=== PATIENT | male | born 1965 | race African-American/Black ===

== ENCOUNTER 2016-06-10 10:14 | Emergency (ER) | payer OTHER ==
[2016-06-10 10:28] VITALS: BP 154/80; PULSE 67; TEMP 97.4; BMI 29.0
[2016-06-10] MEDS ORDERED: KETOROLAC TROMETHAMINE 60 MG/2 ML VIAL IM ONE (10:53)
[2016-06-10] MEDS ORDERED: KETOROLAC TROMETHAMINE 60 MG/2 ML VIAL ONE (11:00)
[2016-06-10 11:14] LABS: URINE APPEARANCE CLEAR; URINE BILIRUBIN NEGATIVE (NEGATIVE); URINE BLOOD NEGATIVE (NEGATIVE); URINE COLOR LTYELLOW; URINE GLUCOSE (UA) NEGATIVE (NEGATIVE); URINE KETONE NEGATIVE (NEGATIVE); URINE LEUK ESTERASE NEGATIVE (NEGATIVE); URINE NITRITE NEGATIVE (NEGATIVE); URINE PROTEIN NEGATIVE (NEGATIVE); URINE UROBILINOGEN NEGATIVE E.U./dl (0.2-1.0)
--- NOTE | 2016-06-10 11:36 | PDOC ---
History of Present Illness - General Chief Complaint: Back Pain Stated Complaint: LOWER BACK PAIN, LT HIP PAIN Time Seen by Provider: 06/10/16 10:42 History Source: Patient Exam Limitations: No Limitations - History of Present Illness Initial Comments: 06/10/16 11:31 51 yr male with c/o left lower back pain radiates to buttock and thigh. Symptoms started one week ago. no urine or bowel dysfunction, no saddle anesthesia. Pt has no medial history .Pt also notes pain to the left elbow for one month. Pt denies trauma, denies warmth to the area, notes the "bone looks weird". Pt took no meds fo rpain [employer]. Past History - Past Medical History Allergies/Adverse Reactions: Allergies Allergy/AdvReac Type Severity Reaction Status Date / Time No Known Allergies Allergy Verified 06/10/16 10:25 Home Medications: Ambulatory Orders Levothyroxine [Synthroid -] 50 mcg PO ASDIR 06/10/16 HTN: Yes Psychiatric Problems: Yes (ANXIETY.) Seizures: Yes - Surgical History Orthopedic Surgery: Yes (L. Knee & Shoulder 2009) - Immunization History Immunization Up to Date: Yes - Psycho/Social/Smoking Cessation Hx Anxiety: Yes Suicidal Ideation: No Smoking Status: No Smoking History: Never smoked Have you smoked in the past 12 months: No Number of Cigarettes Smoked Daily: 0 Information on smoking cessation initiated: No Hx Alcohol Use: No Drug/Substance Use Hx: No Substance Use Type: None Hx Substance Use Treatment: No Trauma Specific PMHX - Complaint Specific PMHX Arthritis: No Back Injury: No Neck Injury: No Hx Sacro Iliac Joint Dysfunction: No Review of Systems - Review of Systems Able to Perform ROS?: Yes Is the patient limited Malagasy proficient: No Constitutional: No: Symptoms Reported HEENTM: No: Symptoms Reported, Dental Problems Respiratory: No: Symptoms reported Cardiac (ROS): No: Symptoms Reported ABD/GI: No: Symptoms Reported : No: Symptoms Reported Musculoskeletal: Yes: Back Pain, Other (left elbow pain) *Physical Exam - Vital Signs Last Vital Signs Temp Pulse Resp BP Pulse Ox 97.4 F L 67 20 154/80 99 06/10/16 10:25 06/10/16 10:25 06/10/16 10:25 06/10/16 10:25 06/10/16 10:25 - Physical Exam General Appearance: Yes: Nourished, Appropriately Dressed HEENT: positive: EOMI, FACUNDO, Normal ENT Inspection, TMs Normal, Pharynx Normal Neck: positive: Supple Respiratory/Chest: positive: Lungs Clear, Normal Breath Sounds Cardiovascular: positive: Regular Rhythm, Regular Rate Gastrointestinal/Abdominal: positive: Normal Bowel Sounds, Soft Musculoskeletal: positive: Normal Inspection. negative: Decreased Range of Motion, Vertebral Tenderness Extremity: positive: Normal Capillary Refill, Normal Inspection Integumentary: positive: Normal Color, Dry, Warm Neurologic: positive: Fully Oriented, Alert, Normal Mood/Affect, Normal Response , Motor Strength 08/27 ED Treatment Course - ADDITIONAL ORDERS Additional order review: Laboratory Results 06/10/16 11:00 Urine Color Ltyellow Urine Appearance Clear Urine pH 5.0 Ur Specific [place] 1.014 Urine Protein Negative Urine Glucose (UA) Negative Urine Ketones Negative Urine Blood Negative Urine Nitrite Negative Urine Bilirubin Negative Urine Urobilinogen Negative Ur Leukocyte Esterase Negative - RADIOLOGY Radiology Studies Ordered: Category Date Time Status ELBOW-LEFT [RAD] Stat Radiology 06/10/16 11:27 Ordered - Medications Given in the ED: ED Medications Discontinued Medications Generic Name Dose Route Start Last Admin Trade Name Freq PRN Reason Stop Dose Admin Ketorolac Tromethamine 60 mg 06/10/16 10:53 06/10/16 11:07 Toradol Injection - IM 06/10/16 10:54 60 mg ONCE ONE Administration Medical Decision Making - Medical Decision Making 06/10/16 11:38 cc: back pain to left buttock and thigh worse with raising left leg, no numbness or tingling to leg no saddle anesthesia. left elbow no deformity or swelling no redness or warmth, skin intact will xray left elbow toradol for pain ua to r/o hematuria, UTI *DC/Admit/Observation/Transfer Diagnosis at time of Disposition: Sciatica of left side - Discharge Dispostion Disposition: HOME Condition at time of disposition: Good - Patient Instructions Additional Instructions: warm compresses to lower back every few hours for 20 minutes take naproysn for pain take flexeril for muscle spasm (DO NOT DRIVE, OPERATE MACHINERY OR DRINK ALCOHOL ) WHEN TAKING FLEXERIL IT MAY MAKE YOU DROWSY follow with your PMD or with the orthopedist for follow up
== END 2016-06-10 12:21 | disposition home or self-care (01) ==
LOC: JERFT 10:14
PROC: 3E0233Z Introduction of Anti-inflammatory into Muscle, Percutaneous Approach (ICD-10-PCS; principal; 2016-06-10)
DX: M54.42 Lumbago with sciatica, left side (principal)
CPT/HCPCS: 73070-TC-LT; 81003; 99281-25

== ENCOUNTER 2017-07-05 23:00 | Emergency (ER) | payer OTHER ==
[2017-07-05 23:18] VITALS: TEMP 97.4; BMI 29.5
[2017-07-06] MEDS ORDERED: ALPRAZolam 0.25 MG TABLET PO ONE (00:31)
[2017-07-06] MEDS ORDERED: ACETAMINOPHEN 500 MG TABLET (FP) PO STA (00:38)
[2017-07-06] MEDS ORDERED: ALPRAZolam 0.25 MG TABLET ONE (00:38)
[2017-07-06] MEDS ORDERED: ACETAMINOPHEN 325 MG TABLET (FP) ONE (00:43)
--- NOTE | 2017-07-06 01:43 | PDOC ---
History of Present Illness <AnicetoShireen Zoila - Last Filed: 07/06/17 01:43> - General History Source: Patient Exam Limitations: No Limitations - History of Present Illness Initial Comments: 07/06/17 01:47 The patient is a 52 year old male with past medical history of hypertension, anxiety and migraines who presents to the ED with a panic attack. The patient states the onset of the attack was due to the fact that he came home to his apartment to find that his locks were changed. The patient states he has been having difficulties within the co-op he lives in, resulting in going to court multiple times in the year. He describes his panic attack as palpitations but denies any associated chest pain, shortness of breath, or diaphoresis. He denies any recent illness, fevers, or chills. Allergies: NKDA PCP: Dr. Elijah Navarro <Saray Bass - Last Filed: 07/06/17 01:51> - General Chief Complaint: Psychiatric Stated Complaint: ANIEXTY Time Seen by Provider: 07/06/17 00:07 Past History - Past Medical History COPD: No HTN: Yes Psychiatric Problems: Yes (ANXIETY.) Seizures: Yes - Surgical History Orthopedic Surgery: Yes (L. Knee & Shoulder 2009) - Immunization History Immunization Up to Date: Yes - Suicide/Smoking/Psychosocial Hx Smoking Status: No Smoking History: Never smoked Have you smoked in the past 12 months: No Number of Cigarettes Smoked Daily: 0 Information on smoking cessation initiated: No Hx Alcohol Use: No Drug/Substance Use Hx: No Substance Use Type: None Hx Substance Use Treatment: No <Raul Morelandlili Cummings - Last Filed: 07/06/17 01:43> <Saray Bass - Last Filed: 07/06/17 01:51> - Past Medical History Allergies/Adverse Reactions: Allergies Allergy/AdvReac Type Severity Reaction Status Date / Time No Known Allergies Allergy Verified 06/10/16 10:25 Home Medications: Ambulatory Orders Cyclobenzaprine HCl [Flexeril -] 5 mg PO TID PRN #15 tablet 06/10/16 Levothyroxine [Synthroid -] 50 mcg PO ASDIR 06/10/16 Naproxen [Naprosyn -] 500 mg PO BID PRN #14 tablet 06/10/16 Review of Systems - Review of Systems Able to Perform ROS?: Yes Comments:: 07/06/17 01:48 CONSTITUTIONAL: Absent: fever, chills, diaphoresis, generalized weakness, malaise, loss of appetite HEENT: Absent: rhinorrhea, nasal congestion, throat pain, throat swelling, difficulty swallowing, mouth swelling, ear pain, eye pain, visual Changes CARDIOVASCULAR: Present: palpitationss Absent: chest pain, syncope, irregular heart rate, lightheadedness, peripheral edema RESPIRATORY: Absent: cough, shortness of breath, dyspnea with exertion, orthopnea, wheezing, stridor, hemoptysis GASTROINTESTINAL: Absent: abdominal pain, abdominal distension, nausea, vomiting, diarrhea, constipation, melena, hematochezia GENITOURINARY: Absent: dysuria, frequency, urgency, hesitancy, hematuria, flank pain, genital pain MUSCULOSKELETAL: Absent: myalgia, arthralgia, joint swelling SKIN: Absent: rash, itching, pallor HEMATOLOGIC/IMMUNOLOGIC: Absent: easy bleeding, easy bruising, lymphadenopathy, frequent infections ENDOCRINE: Absent: unexplained weight gain, unexplained weight loss, heat intolerance, cold intolerance NEUROLOGIC: Present: headache Absent: focal weakness or paresthesias, dizziness, unsteady gait, seizure, mental status changes, bladder or bowel incontinence PSYCHIATRIC: Absent: anxiety, depression, suicidal or homicidal ideation, hallucinations. <Saray Bass - Last Filed: 07/06/17 01:51> *Physical Exam - Vital Signs Last Vital Signs Temp Pulse Resp BP Pulse Ox 97.4 F L 110 H 21 158/86 100 07/05/17 23:07 07/05/17 23:07 07/05/17 23:07 07/05/17 23:07 07/05/17 23:07 <Shireen Moreland - Last Filed: 07/06/17 01:43> - Vital Signs Last Vital Signs Temp Pulse Resp BP Pulse Ox 97.4 F L 110 H 21 158/86 100 07/05/17 23:07 07/05/17 23:07 07/05/17 23:07 07/05/17 23:07 07/05/17 23:07 - Physical Exam Comments: 07/06/17 01:50 GENERAL: Well developed, well nourished. Awake and alert. No acute distress. HEENT: Normocephalic, atraumatic. PERRLA, EOMI. No conjunctival pallor. Sclera are non- icteric. Moist mucous membranes. Oropharynx is clear. NECK: Supple. Full ROM. No JVD. Carotid pulses 2+ and symmetric, without bruits. No thyromegaly. No lymphadenopathy. CARDIOVASCULAR: Regular rate and rhythm. No murmurs, rubs, or gallops. Distal pulses are 2+ and symmetric. PULMONARY: No evidence of respiratory distress. Lungs clear to auscultation bilaterally. No wheezing, rales or rhonchi. ABDOMINAL: Soft. Non-tender. Non-distended. No rebound or guarding. No organomegaly. Normoactive bowel sounds. MUSCULOSKELETAL Normal range of motion at all joints. No bony deformities or tenderness. No CVA tenderness. EXTREMITIES: No cyanosis. No clubbing. No edema. No calf tenderness. SKIN: Warm and dry. Normal capillary refill. No rashes. No jaundice. NEUROLOGICAL: Alert, awake, appropriate. Cranial nerves 2-12 intact. No deficits to light touch and temperature in face, upper extremities and lower extremities. No motor deficits in the in face, upper extremities and lower extremities. Normoreflexic in the upper and lower extremities. Normal speech. Toes are down-going bilaterally. Gait is normal without ataxia. PSYCHIATRIC: Cooperative. Good eye contact. Appropriate mood and affect. <Saray Bass - Last Filed: 07/06/17 01:51> ED Treatment Course - Medications Given in the ED: ED Medications Discontinued Medications Generic Name Dose Route Start Last Admin Trade Name Freq PRN Reason Stop Dose Admin Acetaminophen 975 mg 07/06/17 00:38 07/06/17 00:48 Tylenol - PO 07/06/17 00:39 975 mg ONCE STA Administration Alprazolam 0.25 mg 07/06/17 00:31 07/06/17 00:48 Xanax - PO 07/06/17 00:32 0.25 mg ONCE ONE Administration <Shireen Moreland - Last Filed: 07/06/17 01:43> - Medications Given in the ED: ED Medications Discontinued Medications Generic Name Dose Route Start Last Admin Trade Name Freq PRN Reason Stop Dose Admin Acetaminophen 975 mg 07/06/17 00:38 07/06/17 00:48 Tylenol - PO 07/06/17 00:39 975 mg ONCE STA Administration Alprazolam 0.25 mg 07/06/17 00:31 07/06/17 00:48 Xanax - PO 07/06/17 00:32 0.25 mg ONCE ONE Administration <Saray Bass - Last Filed: 07/06/17 01:51> *DC/Admit/Observation/Transfer <Shireen Moreland - Last Filed: 07/06/17 01:43> - Attestations Scribe Attestion: 07/06/17 01:50 Documentation prepared by Saray Bass, acting as medical coder for Shireen Moreland MD. <Saray Bass - Last Filed: 07/06/17 01:51> Diagnosis at time of Disposition: Anxiety Hypertension Qualifiers: Hypertension type: essential hypertension Qualified Code(s): I10 - Essential ( primary) hypertension - Discharge Dispostion Disposition: HOME Condition at time of disposition: Stable - Referrals Referrals: Elijah Navarro MD [Primary Care Provider] - - Patient Instructions Printed Discharge Instructions: DI for High Blood Pressure, DI for Anxiety -- Adult Additional Instructions: please continue your regular mediations return for any worsening symptoms - Post Discharge Activity
[2017-07-06 02:17] VITALS: BP 134/85; PULSE 62
--- NOTE | 2017-07-06 10:48 | EKG ---
Test Reason : Blood Pressure : / mmHG Vent. Rate : 070 BPM Atrial Rate : 070 BPM P-R Int : 184 ms QRS Dur : 086 ms QT Int : 400 ms P-R-T Axes : 052 064 053 degrees QTc Int : 432 ms POOR DATA QUALITY, INTERPRETATION MAY BE ADVERSELY AFFECTED NORMAL SINUS RHYTHM NONSPECIFIC ST AND T WAVE ABNORMALITY ABNORMAL ECG WHEN COMPARED WITH ECG OF 04-FEB-2016 07:18, NO SIGNIFICANT CHANGE WAS FOUND Confirmed by EAGLE SIMMONS MD ([id number]) on 07/06/2017 10:48:19 AM Referred By: Confirmed By:EAGLE SIMMONS MD
== END 2017-07-06 01:55 | disposition home or self-care (01) ==
LOC: JER 23:00
DX: F41.9 Anxiety disorder, unspecified (principal); I10 Essential (primary) hypertension; G43.909 Migraine, unspecified, not intractable, without status migrainosus
CPT/HCPCS: 93005; 93010; 99281-25